=== PATIENT | female | born 1970 | race Caucasian/White ===

== ENCOUNTER → 2022-05-12 11:17 | Outpatient (CLI) | payer OTHER, SELFPAY ==
--- NOTE | ~2022-05-12 | US_ITS ---
EXAMINATION: US pelvic complete w TV DATE: 05/12/2022 12:04 INDICATION: Menorrhagia Comparison:No prior studies for comparison. TECHNIQUE: Multiple transabdominal and endovaginal sonographic images of the pelvis performed. FINDINGS: The uterus measures 16 x 9.4 x 6.7 cm. There are multiple uterine fibroids, largest measuri ng 5.8 x 5.7 x 4.9 cm. The endometrial complex measures 6.5 mm. The ovaries are not visualized. There is no free fluid in the pelvis. There are no abnormal masses seen on either side. IMPRESSION: 1. Enlarged fibroid uterus. Reviewed, dictated and finalized at location A. IMPRESSION: 1. Enlarged fibroid uterus.
== END ==
PROVIDERS: PCP Obstetrics & Gynecology; Visit Provider Obstetrics & Gynecology
DX: N93.9 Abnormal uterine and vaginal bleeding, unspecified (principal); D25.9 Leiomyoma of uterus, unspecified
CPT/HCPCS: 76830; 76856